=== PATIENT | male | born 1970 | race Caucasian/White ===

== ENCOUNTER → 2019-10-04 | Outpatient (CLI) | payer MEDICARE, OTHER ==
--- NOTE | 2019-10-04 13:12 | CT ---
EXAMINATION TYPE: CT lumbar spine wo con DATE OF EXAM: 10/04/2019 1:02 PM COMPARISON: Prior CT lumbar spine October 04, 2019 and prior MRI lumbar spine May 09, 2015 HISTORY: Lower back and right hip pain, no known injury CT DLP: 960.91 mGycm Automated exposure control for dose reduction was used. Unenhanced CT of the lumbar spine was performed. Bone and soft tissue window settings are submitted as well as coronal and sagittal reconstructions. There is redemonstration of 5 lumbar type vertebra. Lumbar spine redemonstrates satisfactory alignmen t without evidence of acute fracture or dislocation. Stable mild to moderate disc space narrowing pos terior L5-S1 level. Redemonstration of posterior spinal stimulator device with new lead entering spin al canal at L3-L4 level and ascends superiorly. Visualized portion of more superiorly is stable. No n ew large disc herniation identified on CT. Prior resection of the posterior upper sacrum sagittal hadley ge 26 is suspected without significant change from prior CT. Axial images redemonstrate mild broad disc bulge and facet arthropathy L3-L4 level mildly effacing an terior left paracentral spinal canal. Axial images L4-L5 level show mild facet degenerative changes of posterior spur disc complex effacing right paracentral spinal canal. Axial images at L5-S1 level show mild/moderate facet degenerative changes. Spinal canal is preserved due to suspected posterior resection. Bilateral neural foramina are patent. No suspicious incidental new retroperitoneal findings. IMPRESSION: New stimulator noted. Some degenerative changes mid to lower lumbar spine redemonstrated. Surgical changes posterior upper sacrum again seen. No significant change or progression otherwise f rom prior studies noted.
--- NOTE | 2019-10-04 13:13 | CT ---
EXAMINATION TYPE: CT hip RT wo con DATE OF EXAM: 10/04/2019 COMPARISON: None. HISTORY: Lower back and right hip pain, no known injury CT DLP: 854.09 mGycm Automated exposure control for dose reduction was used. FINDINGS: There is mild axial joint space loss and mild to moderate acetabular spurring. Femoral head shape is maintained. No significant joint effusion. No acute fracture or dislocation. There is no suspicious groin hernia or adenopathy. Muscle bulk is maintained. Right-sided pelvic phle boliths are incidentally noted. IMPRESSION: As above.
== END | disposition home or self-care (01) ==
LOC: RADCTMAIN 12:36
PROVIDERS: ATTEND Psychiatry & Neurology Neurology
DX: M47.816 Spondylosis without myelopathy or radiculopathy, lumbar region (principal); M25.551 Pain in right hip; Z98.890 Other specified postprocedural states
CPT/HCPCS: 72131